=== PATIENT | male | born 1935 | race Caucasian/White ===

== ENCOUNTER 2018-05-29 16:27 | Inpatient (IN) | payer MEDICARE, OTHER ==
[2018-05-29 16:49] LABS: ADD MAN DIFF? NO
[2018-05-29 16:51] LABS: WHITE BLOOD COUNT 11.5 10^3/ul (4.8-10.8)
[2018-05-29 16:51] LABS: ABNORMAL IP MESSAGE 1; BASOPHILS % 0.3 % (0.0-2.0); EOSINOPHILS # 0.7 10^3/ul (0.0-0.5); EOSINOPHILS % 6.2 % (0.0-7.0); HEMATOCRIT 33.3 % (42.0-52.0); HEMOGLOBIN 10.3 g/dl (14.0-18.0); LYMPHOCYTES # 1.3 10^3/ul (0.8-2.9); LYMPHOCYTES % 10.9 % (15.0-51.0); MEAN CORPUSCULAR HEMOGLOBIN 21.8 pg (29.0-33.0); MEAN CORPUSCULAR HGB CONC 30.9 g/dl (32.0-37.0); MEAN CORPUSCULAR VOLUME 70.4 fl (82.0-101.0); MONOCYTES % 8.8 % (0.0-11.0); NEUTROPHIL # 8.4 10^3/ul (1.6-7.5); NEUTROPHILS % 73.2 % (39.0-77.0); PLATELET COUNT 128 10^3/UL (140-415); POSITIVE DIFF @See below; RED BLOOD COUNT 4.73 10^6/ul (4.70-6.10); RED CELL DISTRIBUTION WIDTH 15.4 % (11.5-14.5)
[2018-05-29] MEDS: METHYLPREDNISOLONE 125 MG INJ IV (17:08)
[2018-05-29] MEDS: MAGNESIUM SULFATE 2 GM/50 ML 50 ML IVPB (17:09)
[2018-05-29] MEDS: IPRATROPIUM (NEB) 0.5 MG/2.5 ML AMP INH (17:09)
[2018-05-29] MEDS: ALBUTEROL 0.5% (NEB) 2.5 MG/0.5 ML AMP INH (17:09)
[2018-05-29 17:12] LABS: INR 1.24; PROTIME 15.7 Sec (11.9-14.9); PT RATIO 1.2
[2018-05-29 17:13] LABS: PARTIAL THROMBOPLASTIN TIME 35.6 Sec (23.0-35.0)
[2018-05-29 17:20] LABS: ANION GAP 21 (5-13); BLOOD UREA NITROGEN 53 mg/dl (7-20); CARBON DIOXIDE 15 mmol/L (21-31); CHLORIDE 106 mmol/L (97-110); CREATININE 2.65 mg/dl (0.61-1.24); GLUCOSE 163 mg/dl (70-220); POTASSIUM 4.4 mmol/L (3.5-5.1); SODIUM 142 mmol/L (135-144)
[2018-05-29 17:21] LABS: Allen Test ACCEPTAB; Arterial Base Excess -8.4 mmol/L (-3.0-3); Arterial Blood Gas Oxygen Sat 94.1 mmHG (95.0-100.0); Arterial COHb 0.5 % (0.0-3.0); Arterial Fraction of Oxyhgb 93.3 % (93.0-99.0); Arterial HCO3 16.3 mmol/L (22.0-26.0); Arterial MetHb 0.3 % (0.0-1.5); Arterial pCO2 31.1 mmhg (35-45); MODE NASAL CANNULA; Site Right Radial
[2018-05-29 17:32] LABS: B-TYPE NATRIURETIC PEPTIDE 3290 PG/ML (0-450); TROPONIN-I < 0.012 ng/ml (0.000-0.120)
[2018-05-29] MEDS: SODIUM CHLORIDE 0.9% 1L BAG IV* (17:33)
[2018-05-29] MEDS: LEVOFLOXACIN 750MG/D5W (PMX) 150 ML IVPB (18:05)
[2018-05-29] MEDS ORDERED: ACETAMINOPHEN 325 MG TAB PO ×2 (18:30→19:30)
[2018-05-29] MEDS ORDERED: ONDANSETRON 4 MG INJ IV ×2 (18:30→19:30)
[2018-05-29] MEDS ORDERED: MAGNESIUM HYDROXIDE 30ML CUP PO (19:30)
[2018-05-29] MEDS ORDERED: DOCUSATE SODIUM 100 MG CAP PO (19:30)
[2018-05-29] MEDS ORDERED: NITROGLYCERIN (SL) 0.4 MG TAB SL (19:30)
[2018-05-29] MEDS ORDERED: NACL 0.9% 3 ML SYG IV (19:30)
[2018-05-29] MEDS: FUROSEMIDE 40 MG INJ IV (21:33)
[2018-05-29] MEDS: LEVALBUTEROL (NEB) 1.25 MG/0.5 ML AMP HHN (23:28)
[2018-05-30] MEDS ORDERED: IPRATROPIUM (NEB) 0.5 MG/2.5 ML AMP HHN (00:30)
[2018-05-30] MEDS: METOLAZONE 2.5 MG TAB PO (01:12)
[2018-05-30] MEDS: FUROSEMIDE 40 MG INJ IV ×2 (01:13→17:54)
[2018-05-30] MEDS: LORAZEPAM 2 MG INJ IV (04:46)
[2018-05-30] MEDS: LEVALBUTEROL (NEB) 1.25 MG/0.5 ML AMP HHN ×5 (04:57→20:01)
[2018-05-30] MEDS: IPRATROPIUM (NEB) 0.5 MG/2.5 ML AMP HHN ×5 (04:59→20:01)
[2018-05-30] MEDS: BUMETANIDE 3 MG in DEXTROSE 5% 18 ML IV (05:13)
[2018-05-30 06:06] LABS: ADD MAN DIFF? NO
[2018-05-30 06:12] LABS: ABNORMAL IP MESSAGE 1; BASOPHILS % 0.2 % (0.0-2.0); HEMATOCRIT 31.5 % (42.0-52.0); HEMOGLOBIN 10.1 g/dl (14.0-18.0); LYMPHOCYTES # 0.4 10^3/ul (0.8-2.9); LYMPHOCYTES % 6.1 % (15.0-51.0); MEAN CORPUSCULAR HEMOGLOBIN 22.3 pg (29.0-33.0); MEAN CORPUSCULAR HGB CONC 32.1 g/dl (32.0-37.0); MEAN CORPUSCULAR VOLUME 69.5 fl (82.0-101.0); MONOCYTE # 0.1 10^3/ul (0.3-0.9); NEUTROPHIL # 5.6 10^3/ul (1.6-7.5); NEUTROPHILS % 92.2 % (39.0-77.0); PLATELET COUNT 149 10^3/UL (140-415); POSITIVE DIFF @See below; RED BLOOD COUNT 4.53 10^6/ul (4.70-6.10); RED CELL DISTRIBUTION WIDTH 15.1 % (11.5-14.5)
[2018-05-30 06:12] LABS: WHITE BLOOD COUNT 6.1 10^3/ul (4.8-10.8)
[2018-05-30] MEDS: PANTOPRAZOLE (EC) 40 MG TAB PO (06:22)
[2018-05-30 06:39] LABS: IRON 62 ug/dl (35-150)
[2018-05-30 06:46] LABS: ANION GAP 21 (5-13); BLOOD UREA NITROGEN 62 mg/dl (7-20); CALCIUM 9.2 mg/dl (8.4-10.2); CARBON DIOXIDE 17 mmol/L (21-31); CHLORIDE 103 mmol/L (97-110); CREATINE KINASE 34 IU/L (23-200); CREATININE 3.06 mg/dl (0.61-1.24); GLUCOSE 274 mg/dl (70-220); MAGNESIUM 2.1 mg/dl (1.7-2.5); POTASSIUM 5.1 mmol/L (3.5-5.1); SODIUM 141 mmol/L (135-144)
[2018-05-30 06:48] LABS: % IRON SATURATION 22 % SAT (22-52); TOTAL IRON BINDING CAPACITY 284 ug/dl (241-421)
[2018-05-30 06:58] LABS: CK INDEX 2.9; CK-MB 0.99 ng/ml (0.0-2.4); TROPONIN-I < 0.012 ng/ml (0.000-0.120)
[2018-05-30 07:01] LABS: ADD UMIC YES; UR AMORPHOUS CRYSTAL FEW /HPF (NONE SEEN); UR ASCORBIC ACID NEGATIVE (NEGATIVE); UR BACTERIA FEW /HPF (NONE SEEN); UR BILIRUBIN (Dip) NEGATIVE (NEGATIVE); UR BLOOD (Dip) 3+ mg/dL (NEGATIVE); UR CLARITY CLOUDY (CLEAR); UR COLOR YELLOW (YELLOW); UR GLUCOSE (Dip) NEGATIVE (NEGATIVE); UR HYALINE CAST FEW /HPF (NONE SEEN); UR KETONES (Dip) NEGATIVE (NEGATIVE); UR LEUKOCYTE ESTERASE (Dip) TRACE Leu/ul (NEGATIVE); UR NITRITE (Dip) NEGATIVE (NEGATIVE); UR NONSQUAMOUS EPITHELIAL CELL 2 /HPF (NONE SEEN); UR RBC > 182 /HPF (0-5); UR SPECIFIC GRAVITY (Dip) 1.013 (1.003-1.030); UR SQUAMOUS EPITHELIAL CELL FEW /HPF (FEW); UR TOTAL PROTEIN (Dip) NEGATIVE (NEGATIVE); UR UROBILINOGEN (Dip) 1+ mg/dL (NEGATIVE); UR WBC 15 /HPF (0-5)
[2018-05-30 07:04] LABS: SODIUM,URINE RANDOM 23 mmol/L (30-90)
[2018-05-30 07:04] LABS: CREATININE,URINE RANDOM 152.33 mg/dl (20-370)
[2018-05-30] MEDS ORDERED: ENOXAPARIN 30 MG/0.3 ML SYG SC (09:00)
[2018-05-30 09:06] LABS: AADO2 Arterial 179.5 mmHg (7.0-24.0); Allen Test ACCEPTAB; Arterial Base Excess -7.9 mmol/L (-3.0-3); Arterial Blood Gas Oxygen Sat 93.2 mmHG (95.0-100.0); Arterial COHb 0.6 % (0.0-3.0); Arterial Fraction of Oxyhgb 92.4 % (93.0-99.0); Arterial HCO3 16.3 mmol/L (22.0-26.0); Arterial MetHb 0.3 % (0.0-1.5); Arterial pCO2 28.9 mmhg (35-45); Blood Gas IEPAP 18/5; Blood Gas PS 13; MODE MASK - BIPAP; Site Right Radial
[2018-05-30] MEDS: DOXYCYCLINE 100 MG in SOD CHLORIDE 0.9% 250 ML IVPB (09:22)
[2018-05-30 10:33] LABS: PROSTATE SPECIFIC ANTIGEN 0.3 ng/ml (0.0-4.0)
[2018-05-30] MEDS: CEFEPIME 1GM/50 ML (PMX) 50 ML IVPB (11:33)
[2018-05-30] MEDS: DOCUSATE SODIUM 100 MG CAP PO ×2 (11:33→20:23)
[2018-05-30] MEDS: HEPARIN 5,000 UNIT/1 ML VIAL SC ×2 (11:38→20:27)
[2018-05-30] MEDS ORDERED: HEPARIN 5,000 UNIT/1 ML VIAL SC (14:00)
[2018-05-30 14:02] LABS: CREATINE KINASE 34 IU/L (23-200)
[2018-05-30 14:14] LABS: CK INDEX 3.1; CK-MB 1.07 ng/ml (0.0-2.4); TROPONIN-I < 0.012 ng/ml (0.000-0.120)
[2018-05-30] MEDS ORDERED: LEVOFLOXACIN 500MG/D5W (PMX) 250 ML IVPB (19:30)
[2018-05-31] MEDS: IPRATROPIUM (NEB) 0.5 MG/2.5 ML AMP HHN ×6 (01:57→20:46)
[2018-05-31] MEDS: LEVALBUTEROL (NEB) 1.25 MG/0.5 ML AMP HHN ×6 (01:58→20:46)
[2018-05-31] MEDS: FUROSEMIDE 40 MG INJ IV ×2 (05:02→17:22)
[2018-05-31] MEDS: PANTOPRAZOLE (EC) 40 MG TAB PO (05:02)
[2018-05-31 06:15] LABS: ADD MAN DIFF? NO
[2018-05-31 06:21] LABS: WHITE BLOOD COUNT 10.1 10^3/ul (4.8-10.8)
[2018-05-31 06:21] LABS: ABNORMAL IP MESSAGE 1; BASOPHILS % 0.2 % (0.0-2.0); EOSINOPHILS # 0.2 10^3/ul (0.0-0.5); EOSINOPHILS % 2.4 % (0.0-7.0); HEMATOCRIT 30.3 % (42.0-52.0); HEMOGLOBIN 9.7 g/dl (14.0-18.0); LYMPHOCYTES # 1.1 10^3/ul (0.8-2.9); LYMPHOCYTES % 10.7 % (15.0-51.0); MEAN CORPUSCULAR VOLUME 68.9 fl (82.0-101.0); MONOCYTES % 9.4 % (0.0-11.0); NEUTROPHIL # 7.8 10^3/ul (1.6-7.5); NEUTROPHILS % 76.8 % (39.0-77.0); PLATELET COUNT 115 10^3/UL (140-415); POSITIVE DIFF @See below
[2018-05-31 06:41] LABS: ANION GAP 19 (5-13); BLOOD UREA NITROGEN 71 mg/dl (7-20); CALCIUM 9.1 mg/dl (8.4-10.2); CARBON DIOXIDE 21 mmol/L (21-31); CHLORIDE 103 mmol/L (97-110); CREATININE 2.79 mg/dl (0.61-1.24); GLUCOSE 142 mg/dl (70-220); MAGNESIUM 1.9 mg/dl (1.7-2.5); PHOSPHORUS 5.6 mg/dl (2.5-4.9); POTASSIUM 4.2 mmol/L (3.5-5.1); SODIUM 143 mmol/L (135-144)
[2018-05-31] MEDS: DOCUSATE SODIUM 100 MG CAP PO ×2 (08:34→19:56)
[2018-05-31] MEDS: METOLAZONE 5 MG TAB PO (08:35)
[2018-05-31] MEDS: HEPARIN 5,000 UNIT/1 ML VIAL SC ×2 (08:39→20:02)
[2018-05-31] MEDS: CEFEPIME 1GM/50 ML (PMX) 50 ML IVPB (09:01)
[2018-05-31] MEDS ORDERED: ALBUTEROL/IPRATROPIUM (NEB) 3 ML AMP HHN (10:30)
[2018-05-31] MEDS: SEVELAMER CARBONATE 800 MG TABLET PO ×2 (11:21→17:21)
[2018-05-31] MEDS: POLYETHYLENE GLYCOL 17 GM PACKET PO (11:21)
[2018-05-31] MEDS ORDERED: LEVOFLOXACIN 750MG/D5W (PMX) 150 ML IVPB (18:00)
[2018-06-01] MEDS: IPRATROPIUM (NEB) 0.5 MG/2.5 ML AMP HHN ×6 (00:30→20:50)
[2018-06-01] MEDS: LEVALBUTEROL (NEB) 1.25 MG/0.5 ML AMP HHN ×6 (00:30→20:50)
[2018-06-01] MEDS: FUROSEMIDE 40 MG INJ IV ×2 (04:50→17:17)
[2018-06-01] MEDS: PANTOPRAZOLE (EC) 40 MG TAB PO (04:50)
[2018-06-01 06:07] LABS: ADD MAN DIFF? NO
[2018-06-01 06:22] LABS: WHITE BLOOD COUNT 9.3 10^3/ul (4.8-10.8)
[2018-06-01 06:22] LABS: BASOPHILS % 0.2 % (0.0-2.0); EOSINOPHILS % 10.9 % (0.0-7.0); HEMATOCRIT 33.2 % (42.0-52.0); HEMOGLOBIN 10.8 g/dl (14.0-18.0); LYMPHOCYTES # 1.1 10^3/ul (0.8-2.9); LYMPHOCYTES % 11.8 % (15.0-51.0); MEAN CORPUSCULAR HEMOGLOBIN 22.4 pg (29.0-33.0); MEAN CORPUSCULAR HGB CONC 32.5 g/dl (32.0-37.0); MEAN CORPUSCULAR VOLUME 68.7 fl (82.0-101.0); MONOCYTE # 0.9 10^3/ul (0.3-0.9); MONOCYTES % 9.2 % (0.0-11.0); NEUTROPHIL # 6.3 10^3/ul (1.6-7.5); NEUTROPHILS % 67.5 % (39.0-77.0); PLATELET COUNT 119 10^3/UL (140-415); RED BLOOD COUNT 4.83 10^6/ul (4.70-6.10); RED CELL DISTRIBUTION WIDTH 14.9 % (11.5-14.5)
[2018-06-01 06:39] LABS: MAGNESIUM 1.9 mg/dl (1.7-2.5)
[2018-06-01 06:39] LABS: PHOSPHORUS 5.4 mg/dl (2.5-4.9)
[2018-06-01 06:47] LABS: ANION GAP 18 (5-13); BLOOD UREA NITROGEN 67 mg/dl (7-20); CALCIUM 9.2 mg/dl (8.4-10.2); CARBON DIOXIDE 27 mmol/L (21-31); CHLORIDE 99 mmol/L (97-110); CREATININE 2.24 mg/dl (0.61-1.24); GLUCOSE 135 mg/dl (70-220); POTASSIUM 3.7 mmol/L (3.5-5.1); SODIUM 144 mmol/L (135-144)
[2018-06-01] MEDS: DOCUSATE SODIUM 100 MG CAP PO ×2 (08:33→19:52)
[2018-06-01] MEDS: SEVELAMER CARBONATE 800 MG TABLET PO ×3 (08:33→17:17)
[2018-06-01] MEDS: HEPARIN 5,000 UNIT/1 ML VIAL SC ×2 (08:38→19:59)
[2018-06-01] MEDS: METOLAZONE 2.5 MG TAB PO (09:25)
[2018-06-01] MEDS: CEFEPIME 1GM/50 ML (PMX) 50 ML IVPB (09:26)
[2018-06-01] MEDS: POLYETHYLENE GLYCOL 17 GM PACKET PO (10:46)
[2018-06-02] MEDS: IPRATROPIUM (NEB) 0.5 MG/2.5 ML AMP HHN ×6 (01:40→20:50)
[2018-06-02] MEDS: LEVALBUTEROL (NEB) 1.25 MG/0.5 ML AMP HHN ×6 (01:41→20:50)
[2018-06-02] MEDS: FUROSEMIDE 40 MG INJ IV ×2 (04:55→18:07)
[2018-06-02] MEDS: PANTOPRAZOLE (EC) 40 MG TAB PO (04:56)
[2018-06-02 05:47] LABS: ADD MAN DIFF? NO
[2018-06-02 05:56] LABS: ABNORMAL IP MESSAGE 1; BASOPHILS % 0.2 % (0.0-2.0); EOSINOPHILS # 1.1 10^3/ul (0.0-0.5); HEMOGLOBIN 10.8 g/dl (14.0-18.0); LYMPHOCYTES # 0.9 10^3/ul (0.8-2.9); LYMPHOCYTES % 9.9 % (15.0-51.0); MEAN CORPUSCULAR HEMOGLOBIN 21.7 pg (29.0-33.0); MEAN CORPUSCULAR HGB CONC 31.8 g/dl (32.0-37.0); MEAN CORPUSCULAR VOLUME 68.4 fl (82.0-101.0); MONOCYTE # 0.9 10^3/ul (0.3-0.9); MONOCYTES % 10.7 % (0.0-11.0); NEUTROPHIL # 5.9 10^3/ul (1.6-7.5); NEUTROPHILS % 66.9 % (39.0-77.0); PLATELET COUNT 87 10^3/UL (140-415); POSITIVE DIFF @See below; RED BLOOD COUNT 4.97 10^6/ul (4.70-6.10)
[2018-06-02 05:56] LABS: WHITE BLOOD COUNT 8.8 10^3/ul (4.8-10.8)
[2018-06-02 06:10] LABS: MAGNESIUM 1.8 mg/dl (1.7-2.5)
[2018-06-02 06:10] LABS: PHOSPHORUS 4.6 mg/dl (2.5-4.9)
[2018-06-02 06:14] LABS: ANION GAP 14 (5-13); BLOOD UREA NITROGEN 62 mg/dl (7-20); CALCIUM 9.1 mg/dl (8.4-10.2); CARBON DIOXIDE 32 mmol/L (21-31); CHLORIDE 97 mmol/L (97-110); CREATININE 1.83 mg/dl (0.61-1.24); GLUCOSE 151 mg/dl (70-220); POTASSIUM 3.4 mmol/L (3.5-5.1); SODIUM 143 mmol/L (135-144)
[2018-06-02] MEDS: SEVELAMER CARBONATE 800 MG TABLET PO ×3 (07:59→18:07)
[2018-06-02] MEDS: DOCUSATE SODIUM 100 MG CAP PO ×2 (08:23→22:55)
[2018-06-02] MEDS: POLYETHYLENE GLYCOL 17 GM PACKET PO (08:23)
[2018-06-02] MEDS: HEPARIN 5,000 UNIT/1 ML VIAL SC ×2 (08:32→23:07)
[2018-06-02] MEDS: POTASSIUM CHLORIDE (SR) 20 MEQ TAB PO (08:33)
[2018-06-02] MEDS: CEFEPIME 1GM/50 ML (PMX) 50 ML IVPB (10:47)
[2018-06-02] MEDS: NIFEdipine (XL) 60 MG TAB PO (11:52)
[2018-06-02] MEDS: ATORVASTATIN 20 MG TAB PO (22:56)
[2018-06-03] MEDS: IPRATROPIUM (NEB) 0.5 MG/2.5 ML AMP HHN ×5 (00:06→17:00)
[2018-06-03] MEDS: LEVALBUTEROL (NEB) 1.25 MG/0.5 ML AMP HHN ×5 (00:06→17:00)
[2018-06-03] MEDS: FUROSEMIDE 40 MG INJ IV (06:09)
[2018-06-03] MEDS: PANTOPRAZOLE (EC) 40 MG TAB PO (06:12)
[2018-06-03 06:27] LABS: ANION GAP 16 (5-13); BLOOD UREA NITROGEN 63 mg/dl (7-20); CARBON DIOXIDE 33 mmol/L (21-31); CHLORIDE 96 mmol/L (97-110); CREATININE 2.08 mg/dl (0.61-1.24); GLUCOSE 189 mg/dl (70-220); MAGNESIUM 1.9 mg/dl (1.7-2.5); PHOSPHORUS 4.7 mg/dl (2.5-4.9); POTASSIUM 3.7 mmol/L (3.5-5.1); SODIUM 145 mmol/L (135-144)
[2018-06-03] MEDS: SEVELAMER CARBONATE 800 MG TABLET PO ×3 (07:47→17:36)
[2018-06-03] MEDS: DOCUSATE SODIUM 100 MG CAP PO (08:26)
[2018-06-03] MEDS: POLYETHYLENE GLYCOL 17 GM PACKET PO (08:26)
[2018-06-03] MEDS: NIFEdipine (XL) 60 MG TAB PO (08:29)
[2018-06-03] MEDS: HEPARIN 5,000 UNIT/1 ML VIAL SC (08:31)
[2018-06-03] MEDS: CEFEPIME 1GM/50 ML (PMX) 50 ML IVPB (10:06)
[2018-06-03] MEDS: BUMETANIDE 1 MG TAB PO (17:36)
== END 2018-06-03 17:46 | disposition home or self-care (01) | DRG 871 ==
LOC: E/R 16:27 → 6WM 20:41
DX: A41.9 Sepsis, unspecified organism (principal); J18.9 Pneumonia, unspecified organism; I50.43 Acute on chronic combined systolic (congestive) and diastolic (congestive) heart failure; J96.01 Acute respiratory failure with hypoxia; J44.1 Chronic obstructive pulmonary disease with (acute) exacerbation; E87.2 Acidosis; N17.9 Acute kidney failure, unspecified; I13.0 Hypertensive heart and chronic kidney disease with heart failure and stage 1 through stage 4 chronic kidney disease, or unspecified chronic kidney disease; J44.0 Chronic obstructive pulmonary disease with (acute) lower respiratory infection; J90 Pleural effusion, not elsewhere classified; I31.3 Pericardial effusion (noninflammatory); N39.0 Urinary tract infection, site not specified; N18.9 Chronic kidney disease, unspecified; Z95.810 Presence of automatic (implantable) cardiac defibrillator; D50.9 Iron deficiency anemia, unspecified; D69.6 Thrombocytopenia, unspecified; E03.9 Hypothyroidism, unspecified; E83.9 Disorder of mineral metabolism, unspecified; I73.9 Peripheral vascular disease, unspecified; R91.1 Solitary pulmonary nodule; I48.2 Chronic atrial fibrillation; R60.1 Generalized edema; E83.39 Other disorders of phosphorus metabolism; I27.20 Pulmonary hypertension, unspecified; K80.20 Calculus of gallbladder without cholecystitis without obstruction; E87.6 Hypokalemia; N40.0 Benign prostatic hyperplasia without lower urinary tract symptoms
CPT/HCPCS: 36415; 36600; 71045; 71250; 74176; 76604; 76775; 80048; 81001; 81003; 82550; 82553; 82570; 82728; 82803; 83540; 83605; 83735; 83880; 84100; 84153; 84154; 84300; 84484; 85025; 85610; 85730; 87040; 87086; 87400; 93005; 93306; 94640; 94644; 94660; 94664; 96374; 96375; 97110; 97116; 97162; 97167; 97530; 97535; 99291-25

== ENCOUNTER 2018-07-03 15:37 | Inpatient (IN) | payer MEDICARE, OTHER ==
[2018-07-03 16:10] LABS: ADD MAN DIFF? NO
[2018-07-03 16:16] LABS: WHITE BLOOD COUNT 7.9 10^3/ul (4.8-10.8)
[2018-07-03 16:16] LABS: ABNORMAL IP MESSAGE 1; BASOPHILS % 0.4 % (0.0-2.0); EOSINOPHILS # 0.3 10^3/ul (0.0-0.5); EOSINOPHILS % 3.9 % (0.0-7.0); HEMATOCRIT 29.6 % (42.0-52.0); HEMOGLOBIN 9.2 g/dl (14.0-18.0); LYMPHOCYTES % 13.1 % (15.0-51.0); MEAN CORPUSCULAR HEMOGLOBIN 21.7 pg (29.0-33.0); MEAN CORPUSCULAR HGB CONC 31.1 g/dl (32.0-37.0); MONOCYTE # 0.8 10^3/ul (0.3-0.9); MONOCYTES % 10.4 % (0.0-11.0); NEUTROPHIL # 5.7 10^3/ul (1.6-7.5); NEUTROPHILS % 71.6 % (39.0-77.0); PLATELET COUNT 201 10^3/UL (140-415); POSITIVE DIFF @See below; RED BLOOD COUNT 4.23 10^6/ul (4.70-6.10)
[2018-07-03 16:29] LABS: AADO2 Arterial 140.5 mmHg (7.0-24.0); Arterial Base Excess -6.8 mmol/L (-3.0-3); Arterial Blood Gas Oxygen Sat 94.4 mmHG (95.0-100.0); Arterial COHb 0.2 % (0.0-3.0); Arterial Fraction of Oxyhgb 93.9 % (93.0-99.0); Arterial HCO3 16.8 mmol/L (22.0-26.0); Arterial MetHb 0.3 % (0.0-1.5); Arterial pCO2 27.6 mmhg (35-45); Blood Gas IEPAP 15/5; Blood Gas PS 10; MODE MASK - BIPAP; Site Right Brachial
[2018-07-03 16:32] LABS: PROTIME 15.3 Sec (11.9-14.9); PT RATIO 1.2
[2018-07-03 16:33] LABS: PARTIAL THROMBOPLASTIN TIME 38.5 Sec (23.0-35.0)
[2018-07-03 16:34] LABS: ALANINE AMINOTRANSFERASE 13 IU/L (13-69); ALBUMIN 4.6 g/dl (3.3-4.9); ALBUMIN/GLOBULIN RATIO 1.58; ALKALINE PHOSPHATASE 109 IU/L (42-121); AMYLASE 105 U/L (11-123); ANION GAP 18 (5-13); ASPARTATE AMINO TRANSFERASE 23 IU/L (15-46); BILIRUBIN,INDIRECT 0.5 mg/dl (0-1.1); BILIRUBIN,TOTAL 0.5 mg/dl (0.2-1.3); BLOOD UREA NITROGEN 27 mg/dl (7-20); CALCIUM 9.1 mg/dl (8.4-10.2); CARBON DIOXIDE 14 mmol/L (21-31); CHLORIDE 108 mmol/L (97-110); CREATININE 1.81 mg/dl (0.61-1.24); GLUCOSE 171 mg/dl (70-220); LIPASE 84 U/L (23-300); POTASSIUM 4.3 mmol/L (3.5-5.1); SODIUM 140 mmol/L (135-144); TOTAL PROTEIN 7.5 g/dl (6.1-8.1)
[2018-07-03 16:35] LABS: ADD UMIC YES; UR ASCORBIC ACID NEGATIVE (NEGATIVE); UR BACTERIA FEW /HPF (NONE SEEN); UR BILIRUBIN (Dip) NEGATIVE (NEGATIVE); UR BLOOD (Dip) 1+ mg/dL (NEGATIVE); UR CLARITY CLOUDY (CLEAR); UR COLOR YELLOW (YELLOW); UR GLUCOSE (Dip) NEGATIVE (NEGATIVE); UR HYALINE CAST FEW /HPF (NONE SEEN); UR KETONES (Dip) NEGATIVE (NEGATIVE); UR LEUKOCYTE ESTERASE (Dip) NEGATIVE Leu/ul (NEGATIVE); UR NITRITE (Dip) NEGATIVE (NEGATIVE); UR RBC 5 /HPF (0-5); UR SPECIFIC GRAVITY (Dip) 1.009 (1.003-1.030); UR SQUAMOUS EPITHELIAL CELL FEW /HPF (FEW); UR TOTAL PROTEIN (Dip) NEGATIVE (NEGATIVE); UR UROBILINOGEN (Dip) NEGATIVE (NEGATIVE); UR WBC 5 /HPF (0-5)
[2018-07-03 16:45] LABS: TROPONIN-I < 0.012 ng/ml (0.000-0.120)
[2018-07-03 17:06] LABS: LACTIC ACID 5.6 mmol/L (0.5-2.0)
[2018-07-03] MEDS: SOD CHLORIDE 0.9% 1,000 ML IV (17:15)
[2018-07-03] MEDS: CEFEPIME 2GM/50 ML (PMX) 50 ML IVPB (17:15)
[2018-07-03] MEDS: VANCOMYCIN 1 GM (PMX) 250 ML IVPB (18:03)
[2018-07-03 18:19] LABS: LACTIC ACID 1.3 mmol/L (0.5-2.0)
[2018-07-03 18:57] LABS: B-TYPE NATRIURETIC PEPTIDE 3250 PG/ML (0-450)
[2018-07-03] MEDS ORDERED: ONDANSETRON 4 MG INJ IV ×2 (19:30→21:30)
[2018-07-03] MEDS ORDERED: ACETAMINOPHEN 325 MG TAB PO (19:30)
[2018-07-03 20:27] LABS: LACTIC ACID 2.3 mmol/L (0.5-2.0)
[2018-07-03] MEDS ORDERED: NACL 0.9% 3 ML SYG IV (21:30)
[2018-07-03] MEDS: BUMETANIDE 1 MG TAB PO (21:54)
[2018-07-03] MEDS: ALBUTEROL/IPRATROPIUM (NEB) 3 ML AMP HHN (22:19)
[2018-07-03] MEDS: FUROSEMIDE 40 MG INJ IV (22:25)
[2018-07-03 22:56] LABS: AADO2 Arterial 331.8 mmHg (7.0-24.0); Allen Test ACCEPTAB; Arterial Base Excess -6.2 mmol/L (-3.0-3); Arterial Blood Gas Oxygen Sat 92.9 mmHG (95.0-100.0); Arterial COHb 0 % (0.0-3.0); Arterial Fraction of Oxyhgb 92.6 % (93.0-99.0); Arterial HCO3 17.7 mmol/L (22.0-26.0); Arterial MetHb 0.3 % (0.0-1.5); Arterial pCO2 29.5 mmhg (35-45); MODE SIMPLE MASK; Site Left Radial
[2018-07-04] MEDS: BUMETANIDE 1 MG TAB PO (05:29)
[2018-07-04 06:22] LABS: ADD MAN DIFF? NO
[2018-07-04 06:28] LABS: WHITE BLOOD COUNT 4.9 10^3/ul (4.8-10.8)
[2018-07-04 06:28] LABS: ABNORMAL IP MESSAGE 1; BASOPHILS % 0.2 % (0.0-2.0); EOSINOPHILS # 0.1 10^3/ul (0.0-0.5); EOSINOPHILS % 1.4 % (0.0-7.0); HEMATOCRIT 24.6 % (42.0-52.0); HEMOGLOBIN 7.8 g/dl (14.0-18.0); LYMPHOCYTES # 0.6 10^3/ul (0.8-2.9); LYMPHOCYTES % 12.3 % (15.0-51.0); MEAN CORPUSCULAR HEMOGLOBIN 21.7 pg (29.0-33.0); MEAN CORPUSCULAR HGB CONC 31.7 g/dl (32.0-37.0); MEAN CORPUSCULAR VOLUME 68.5 fl (82.0-101.0); MONOCYTE # 0.5 10^3/ul (0.3-0.9); MONOCYTES % 10.7 % (0.0-11.0); NEUTROPHIL # 3.7 10^3/ul (1.6-7.5); NEUTROPHILS % 75.2 % (39.0-77.0); PLATELET COUNT 114 10^3/UL (140-415); POSITIVE DIFF @See below; RED BLOOD COUNT 3.59 10^6/ul (4.70-6.10); RED CELL DISTRIBUTION WIDTH 16.2 % (11.5-14.5)
[2018-07-04 07:25] LABS: ALANINE AMINOTRANSFERASE 18 IU/L (13-69); ALBUMIN 3.9 g/dl (3.3-4.9); ALBUMIN/GLOBULIN RATIO 1.56; ALKALINE PHOSPHATASE 88 IU/L (42-121); ANION GAP 14 (5-13); ASPARTATE AMINO TRANSFERASE 13 IU/L (15-46); BILIRUBIN,INDIRECT 0.7 mg/dl (0-1.1); BILIRUBIN,TOTAL 0.7 mg/dl (0.2-1.3); BLOOD UREA NITROGEN 27 mg/dl (7-20); CALCIUM 8.7 mg/dl (8.4-10.2); CARBON DIOXIDE 20 mmol/L (21-31); CHLORIDE 107 mmol/L (97-110); CREATININE 1.68 mg/dl (0.61-1.24); GLUCOSE 116 mg/dl (70-220); MAGNESIUM 1.5 mg/dl (1.7-2.5); POTASSIUM 3.9 mmol/L (3.5-5.1); SODIUM 141 mmol/L (135-144); TOTAL PROTEIN 6.4 g/dl (6.1-8.1)
[2018-07-04] MEDS: DOCUSATE SODIUM 100 MG CAP PO ×2 (08:56→20:12)
[2018-07-04] MEDS: CLOPIDOGREL 75 MG TAB PO (08:56)
[2018-07-04] MEDS: POLYETHYLENE GLYCOL 17 GM PACKET PO (08:56)
[2018-07-04] MEDS: FEBUXOSTAT 40 MG TABLET PO (08:57)
[2018-07-04] MEDS: APIXABAN 5 MG TABLET PO ×2 (08:57→20:13)
[2018-07-04] MEDS: TAMSULOSIN (SR) 0.4 MG CAP PO (08:57)
[2018-07-04] MEDS: NIFEdipine (XL) 60 MG TAB PO (08:57)
[2018-07-04] MEDS: FAMOTIDINE 20 MG TAB PO (08:57)
[2018-07-04 11:40] LABS: CREATINE KINASE 38 IU/L (23-200)
[2018-07-04 11:49] LABS: TOTAL IRON BINDING CAPACITY 271 ug/dl (241-421)
[2018-07-04 11:51] LABS: CK INDEX 2.6; TROPONIN-I < 0.012 ng/ml (0.000-0.120)
[2018-07-04] MEDS: MAGNESIUM SULFATE 2 GM/50 ML 50 ML IVPB (12:24)
[2018-07-04 12:36] LABS: % IRON SATURATION 21 % SAT (22-52); IRON 58 ug/dl (35-150)
[2018-07-04] MEDS: METOLAZONE 2.5 MG TAB PO (14:31)
[2018-07-04 15:12] LABS: CREATINE KINASE 39 IU/L (23-200)
[2018-07-04 15:13] LABS: ANION GAP 13 (5-13); BLOOD UREA NITROGEN 28 mg/dl (7-20); CALCIUM 8.8 mg/dl (8.4-10.2); CARBON DIOXIDE 20 mmol/L (21-31); CHLORIDE 106 mmol/L (97-110); CREATININE 1.57 mg/dl (0.61-1.24); GLUCOSE 157 mg/dl (70-220); POTASSIUM 3.9 mmol/L (3.5-5.1); SODIUM 139 mmol/L (135-144)
[2018-07-04 15:25] LABS: CK INDEX 3.1; CK-MB 1.19 ng/ml (0.0-2.4); TROPONIN-I < 0.012 ng/ml (0.000-0.120)
[2018-07-04] MEDS: BUMETANIDE 1 MG INJ IV (17:22)
[2018-07-04] MEDS: ALBUTEROL/IPRATROPIUM (NEB) 3 ML AMP HHN (19:33)
[2018-07-04] MEDS: ACETAMINOPHEN 325 MG TAB PO (20:12)
[2018-07-04] MEDS: ATORVASTATIN 20 MG TAB PO (20:12)
[2018-07-04 20:23] LABS: PROSTATE SPECIFIC ANTIGEN 0.4 ng/ml (0.0-4.0)
[2018-07-05 01:51] LABS: ADD UMIC YES; UR ASCORBIC ACID NEGATIVE (NEGATIVE); UR BACTERIA FEW /HPF (NONE SEEN); UR BILIRUBIN (Dip) NEGATIVE (NEGATIVE); UR BLOOD (Dip) 1+ mg/dL (NEGATIVE); UR CLARITY CLEAR (CLEAR); UR COLOR STRAW (YELLOW); UR GLUCOSE (Dip) NEGATIVE (NEGATIVE); UR KETONES (Dip) NEGATIVE (NEGATIVE); UR LEUKOCYTE ESTERASE (Dip) NEGATIVE Leu/ul (NEGATIVE); UR NITRITE (Dip) NEGATIVE (NEGATIVE); UR RBC 6 /HPF (0-5); UR SPECIFIC GRAVITY (Dip) 1.005 (1.003-1.030); UR TOTAL PROTEIN (Dip) NEGATIVE (NEGATIVE); UR UROBILINOGEN (Dip) NEGATIVE (NEGATIVE); UR WBC 1 /HPF (0-5)
[2018-07-05 01:55] LABS: SODIUM,URINE RANDOM 81 mmol/L (30-90)
[2018-07-05] MEDS: BUMETANIDE 1 MG INJ IV ×2 (05:47→17:04)
[2018-07-05 05:52] LABS: ADD MAN DIFF? NO
[2018-07-05 05:56] LABS: WHITE BLOOD COUNT 4.6 10^3/ul (4.8-10.8)
[2018-07-05 05:56] LABS: ABNORMAL IP MESSAGE 1; BASOPHILS % 0.4 % (0.0-2.0); EOSINOPHILS # 0.5 10^3/ul (0.0-0.5); EOSINOPHILS % 10.5 % (0.0-7.0); HEMATOCRIT 24.4 % (42.0-52.0); HEMOGLOBIN 7.7 g/dl (14.0-18.0); LYMPHOCYTES # 0.7 10^3/ul (0.8-2.9); MEAN CORPUSCULAR HEMOGLOBIN 22.1 pg (29.0-33.0); MEAN CORPUSCULAR HGB CONC 31.6 g/dl (32.0-37.0); MEAN CORPUSCULAR VOLUME 69.9 fl (82.0-101.0); MONOCYTE # 0.5 10^3/ul (0.3-0.9); MONOCYTES % 11.9 % (0.0-11.0); NEUTROPHIL # 2.8 10^3/ul (1.6-7.5); NEUTROPHILS % 60.8 % (39.0-77.0); PLATELET COUNT 129 10^3/UL (140-415); POSITIVE DIFF @See below; RED BLOOD COUNT 3.49 10^6/ul (4.70-6.10); RED CELL DISTRIBUTION WIDTH 15.9 % (11.5-14.5)
[2018-07-05 06:39] LABS: ANION GAP 13 (5-13); BLOOD UREA NITROGEN 25 mg/dl (7-20); CALCIUM 8.7 mg/dl (8.4-10.2); CARBON DIOXIDE 23 mmol/L (21-31); CHLORIDE 105 mmol/L (97-110); CHOL/HDL RATIO 4.7 RATIO; CHOLESTEROL 141 mg/dl (100-200); CREATININE 1.55 mg/dl (0.61-1.24); GLUCOSE 118 mg/dl (70-220); HDL CHOLESTEROL 30 mg/dl (31-75); LDL CHOLESTEROL,CALCULATED 96 mg/dl; MAGNESIUM 1.8 mg/dl (1.7-2.5); PHOSPHORUS 4.2 mg/dl (2.5-4.9); POTASSIUM 3.5 mmol/L (3.5-5.1); SODIUM 141 mmol/L (135-144); TRIGLYCERIDES 75 mg/dl (0-149)
[2018-07-05] MEDS: CLOPIDOGREL 75 MG TAB PO (09:34)
[2018-07-05] MEDS: FEBUXOSTAT 40 MG TABLET PO (09:34)
[2018-07-05] MEDS: NIFEdipine (XL) 60 MG TAB PO (09:35)
[2018-07-05] MEDS: DOCUSATE SODIUM 100 MG CAP PO ×2 (09:35→21:39)
[2018-07-05] MEDS: APIXABAN 5 MG TABLET PO ×2 (09:35→21:39)
[2018-07-05] MEDS: POLYETHYLENE GLYCOL 17 GM PACKET PO (09:35)
[2018-07-05] MEDS: FAMOTIDINE 20 MG TAB PO (09:35)
[2018-07-05] MEDS: METOLAZONE 5 MG TAB PO (09:35)
[2018-07-05] MEDS: TAMSULOSIN (SR) 0.4 MG CAP PO (09:35)
[2018-07-05] MEDS: ALBUTEROL 0.083% (NEB) 2.5 MG/3 ML AMP HHN ×5 (09:59→21:11)
[2018-07-05] MEDS: IPRATROPIUM (NEB) 0.5 MG/2.5 ML AMP INH (10:01)
[2018-07-05] MEDS: ALBUTEROL 0.5% (NEB) 2.5 MG/0.5 ML AMP INH (10:01)
[2018-07-05] MEDS: SOD FERRIC GLUC COMPLX 125 MG in SOD CHLORIDE 0.9% 100 ML IVPB (14:15)
[2018-07-05] MEDS: ALBUTEROL/IPRATROPIUM (NEB) 3 ML AMP HHN (18:30)
[2018-07-05] MEDS: ATORVASTATIN 20 MG TAB PO (21:39)
[2018-07-06 05:39] LABS: ADD MAN DIFF? NO
[2018-07-06 05:43] LABS: ABNORMAL IP MESSAGE 1; BASOPHILS % 0.4 % (0.0-2.0); EOSINOPHILS # 0.3 10^3/ul (0.0-0.5); EOSINOPHILS % 5.6 % (0.0-7.0); HEMATOCRIT 24.9 % (42.0-52.0); HEMOGLOBIN 7.8 g/dl (14.0-18.0); LYMPHOCYTES # 0.6 10^3/ul (0.8-2.9); LYMPHOCYTES % 11.2 % (15.0-51.0); MEAN CORPUSCULAR HEMOGLOBIN 21.4 pg (29.0-33.0); MEAN CORPUSCULAR HGB CONC 31.3 g/dl (32.0-37.0); MEAN CORPUSCULAR VOLUME 68.4 fl (82.0-101.0); MONOCYTE # 0.8 10^3/ul (0.3-0.9); MONOCYTES % 14.2 % (0.0-11.0); NEUTROPHIL # 3.9 10^3/ul (1.6-7.5); NEUTROPHILS % 68.4 % (39.0-77.0); PLATELET COUNT 124 10^3/UL (140-415); POSITIVE DIFF @See below; RED BLOOD COUNT 3.64 10^6/ul (4.70-6.10); RED CELL DISTRIBUTION WIDTH 15.8 % (11.5-14.5)
[2018-07-06 05:43] LABS: WHITE BLOOD COUNT 5.7 10^3/ul (4.8-10.8)
[2018-07-06] MEDS: BUMETANIDE 1 MG INJ IV ×2 (06:13→17:32)
[2018-07-06 06:33] LABS: ANION GAP 10 (5-13); BLOOD UREA NITROGEN 29 mg/dl (7-20); CALCIUM 8.7 mg/dl (8.4-10.2); CARBON DIOXIDE 28 mmol/L (21-31); CHLORIDE 103 mmol/L (97-110); CREATININE 1.47 mg/dl (0.61-1.24); GLUCOSE 129 mg/dl (70-220); POTASSIUM 3.3 mmol/L (3.5-5.1); SODIUM 141 mmol/L (135-144)
[2018-07-06] MEDS: ALBUTEROL 0.083% (NEB) 2.5 MG/3 ML AMP HHN ×3 (08:20→20:02)
[2018-07-06] MEDS: FAMOTIDINE 20 MG TAB PO (09:33)
[2018-07-06] MEDS: DOCUSATE SODIUM 100 MG CAP PO ×2 (09:33→20:55)
[2018-07-06] MEDS: FEBUXOSTAT 40 MG TABLET PO (09:33)
[2018-07-06] MEDS: APIXABAN 5 MG TABLET PO ×2 (09:34→20:55)
[2018-07-06] MEDS: METOLAZONE 5 MG TAB PO (09:35)
[2018-07-06] MEDS: CLOPIDOGREL 75 MG TAB PO (09:35)
[2018-07-06] MEDS: TAMSULOSIN (SR) 0.4 MG CAP PO (09:35)
[2018-07-06] MEDS: NIFEdipine (XL) 60 MG TAB PO (09:35)
[2018-07-06] MEDS: POLYETHYLENE GLYCOL 17 GM PACKET PO (09:36)
[2018-07-06] MEDS: BUDESONIDE (NEB) 0.25 MG/2 ML AMP HHN ×2 (10:30→20:02)
[2018-07-06] MEDS: ALBUTEROL/IPRATROPIUM (NEB) 3 ML AMP HHN (10:34)
[2018-07-06 12:47] LABS: PHOSPHORUS 4.2 mg/dl (2.5-4.9)
[2018-07-06 12:47] LABS: MAGNESIUM 1.7 mg/dl (1.7-2.5)
[2018-07-06] MEDS: SOD FERRIC GLUC COMPLX 125 MG in SOD CHLORIDE 0.9% 100 ML IVPB (13:30)
[2018-07-06 14:56] LABS: CREATININE, RANDOM URINE 25 mg/dL (20-320); MICROALBUMIN 0.9 mg/dL; MICROALBUMIN/CREATININE RATIO 36 (<30)
[2018-07-06] MEDS: METHYLPREDNISOLONE 125 MG INJ IV (15:09)
[2018-07-06] MEDS: GUAIFENESIN 20 MG/ML 5ML CUP PO (15:09)
[2018-07-06] MEDS: POTASSIUM CHLORIDE 50 ML IVPB ×3 (15:10→17:35)
[2018-07-06] MEDS: ATORVASTATIN 20 MG TAB PO (20:55)
[2018-07-07 05:28] LABS: ADD MAN DIFF? NO
[2018-07-07 05:31] LABS: ABNORMAL IP MESSAGE 1; BASOPHILS % 0.2 % (0.0-2.0); LYMPHOCYTES # 0.3 10^3/ul (0.8-2.9); LYMPHOCYTES % 7.3 % (15.0-51.0); MEAN CORPUSCULAR HEMOGLOBIN 21.8 pg (29.0-33.0); MEAN CORPUSCULAR VOLUME 68.1 fl (82.0-101.0); MONOCYTE # 0.2 10^3/ul (0.3-0.9); MONOCYTES % 4.5 % (0.0-11.0); NEUTROPHIL # 3.8 10^3/ul (1.6-7.5); NEUTROPHILS % 87.3 % (39.0-77.0); PLATELET COUNT 98 10^3/UL (140-415); POSITIVE DIFF @See below; RED BLOOD COUNT 3.67 10^6/ul (4.70-6.10); RED CELL DISTRIBUTION WIDTH 15.6 % (11.5-14.5)
[2018-07-07 05:31] LABS: WHITE BLOOD COUNT 4.4 10^3/ul (4.8-10.8)
[2018-07-07] MEDS: BUMETANIDE 1 MG INJ IV ×2 (05:32→17:32)
[2018-07-07 05:45] LABS: ANION GAP 11 (5-13); BLOOD UREA NITROGEN 35 mg/dl (7-20); CALCIUM 8.9 mg/dl (8.4-10.2); CARBON DIOXIDE 29 mmol/L (21-31); CHLORIDE 99 mmol/L (97-110); CREATININE 1.46 mg/dl (0.61-1.24); GLUCOSE 270 mg/dl (70-220); POTASSIUM 3.1 mmol/L (3.5-5.1); SODIUM 139 mmol/L (135-144)
[2018-07-07 07:28] LABS: MAGNESIUM 1.8 mg/dl (1.7-2.5)
[2018-07-07 07:48] LABS: PHOSPHORUS 4.1 mg/dl (2.5-4.9)
[2018-07-07] MEDS: POLYETHYLENE GLYCOL 17 GM PACKET PO (08:41)
[2018-07-07] MEDS: NIFEdipine (XL) 60 MG TAB PO (08:43)
[2018-07-07] MEDS: FAMOTIDINE 20 MG TAB PO (08:43)
[2018-07-07] MEDS: FEBUXOSTAT 40 MG TABLET PO (08:43)
[2018-07-07] MEDS: DOCUSATE SODIUM 100 MG CAP PO ×2 (08:43→20:56)
[2018-07-07] MEDS: APIXABAN 5 MG TABLET PO ×2 (08:43→20:56)
[2018-07-07] MEDS: METOLAZONE 5 MG TAB PO (08:43)
[2018-07-07] MEDS: CLOPIDOGREL 75 MG TAB PO (08:43)
[2018-07-07] MEDS: TAMSULOSIN (SR) 0.4 MG CAP PO (08:43)
[2018-07-07] MEDS: POTASSIUM CHLORIDE (SR) 20 MEQ TAB PO (08:48)
[2018-07-07] MEDS: SPIRONOLACTONE 25 MG TAB PO (08:48)
[2018-07-07] MEDS: ALBUTEROL 0.083% (NEB) 2.5 MG/3 ML AMP HHN ×3 (08:55→20:31)
[2018-07-07] MEDS: BUDESONIDE (NEB) 0.25 MG/2 ML AMP HHN ×2 (08:57→20:31)
[2018-07-07] MEDS: SOD FERRIC GLUC COMPLX 125 MG in SOD CHLORIDE 0.9% 100 ML IVPB (12:58)
[2018-07-07 18:13] LABS: OCCULT BLOOD STOOL NEGATIVE (NEGATIVE)
[2018-07-07] MEDS: ATORVASTATIN 20 MG TAB PO (20:56)
[2018-07-08] MEDS: BUMETANIDE 1 MG INJ IV (05:26)
[2018-07-08 05:51] LABS: ADD MAN DIFF? NO
[2018-07-08 05:57] LABS: WHITE BLOOD COUNT 6.6 10^3/ul (4.8-10.8)
[2018-07-08 05:57] LABS: ABNORMAL IP MESSAGE 1; BASOPHILS % 0.2 % (0.0-2.0); EOSINOPHILS % 0.6 % (0.0-7.0); HEMATOCRIT 25.3 % (42.0-52.0); LYMPHOCYTES # 0.9 10^3/ul (0.8-2.9); LYMPHOCYTES % 13.7 % (15.0-51.0); MEAN CORPUSCULAR HEMOGLOBIN 21.6 pg (29.0-33.0); MEAN CORPUSCULAR HGB CONC 31.6 g/dl (32.0-37.0); MEAN CORPUSCULAR VOLUME 68.4 fl (82.0-101.0); MONOCYTE # 0.6 10^3/ul (0.3-0.9); MONOCYTES % 8.9 % (0.0-11.0); NEUTROPHILS % 76.1 % (39.0-77.0); PLATELET COUNT 103 10^3/UL (140-415); POSITIVE DIFF @See below; RED CELL DISTRIBUTION WIDTH 15.1 % (11.5-14.5)
[2018-07-08 07:10] LABS: ANION GAP 10 (5-13); BLOOD UREA NITROGEN 47 mg/dl (7-20); CALCIUM 8.9 mg/dl (8.4-10.2); CARBON DIOXIDE 34 mmol/L (21-31); CHLORIDE 98 mmol/L (97-110); CREATININE 1.51 mg/dl (0.61-1.24); GLUCOSE 149 mg/dl (70-220); MAGNESIUM 1.8 mg/dl (1.7-2.5); PHOSPHORUS 3.6 mg/dl (2.5-4.9); POTASSIUM 3.6 mmol/L (3.5-5.1); SODIUM 142 mmol/L (135-144)
[2018-07-08] MEDS: DOCUSATE SODIUM 100 MG CAP PO (08:43)
[2018-07-08] MEDS: POLYETHYLENE GLYCOL 17 GM PACKET PO (08:50)
[2018-07-08] MEDS: TAMSULOSIN (SR) 0.4 MG CAP PO (08:51)
[2018-07-08] MEDS: NIFEdipine (XL) 90 MG TAB PO (08:51)
[2018-07-08] MEDS: FAMOTIDINE 20 MG TAB PO (08:51)
[2018-07-08] MEDS: APIXABAN 5 MG TABLET PO (08:51)
[2018-07-08] MEDS: FEBUXOSTAT 40 MG TABLET PO (08:51)
[2018-07-08] MEDS: CLOPIDOGREL 75 MG TAB PO (08:51)
[2018-07-08] MEDS: ALBUTEROL 0.083% (NEB) 2.5 MG/3 ML AMP HHN ×2 (08:55→14:00)
[2018-07-08] MEDS ORDERED: METOLAZONE 5 MG TAB PO (09:00)
[2018-07-08] MEDS: BUDESONIDE (NEB) 0.25 MG/2 ML AMP HHN (10:36)
[2018-07-08] MEDS: SOD FERRIC GLUC COMPLX 125 MG in SOD CHLORIDE 0.9% 100 ML IVPB (12:19)
[2018-07-08] MEDS ORDERED: BUMETANIDE 1 MG TAB PO (18:00)
== END 2018-07-08 15:45 | disposition home or self-care (01) | DRG 291 ==
LOC: 6WM 20:07 → E/R 15:37 → 6WM 19:02
PROC: 5A09357 Assistance with Respiratory Ventilation, Less than 24 Consecutive Hours, Continuous Positive Airway Pressure (ICD-10-PCS; principal; 2018-07-03)
DX: I13.0 Hypertensive heart and chronic kidney disease with heart failure and stage 1 through stage 4 chronic kidney disease, or unspecified chronic kidney disease (principal); J96.00 Acute respiratory failure, unspecified whether with hypoxia or hypercapnia; I50.33 Acute on chronic diastolic (congestive) heart failure; E87.2 Acidosis; N17.9 Acute kidney failure, unspecified; J44.1 Chronic obstructive pulmonary disease with (acute) exacerbation; I27.20 Pulmonary hypertension, unspecified; D69.6 Thrombocytopenia, unspecified; I48.0 Paroxysmal atrial fibrillation; I42.9 Cardiomyopathy, unspecified; N18.3 Chronic kidney disease, stage 3 (moderate); I73.9 Peripheral vascular disease, unspecified; D63.1 Anemia in chronic kidney disease; R91.8 Other nonspecific abnormal finding of lung field; R33.9 Retention of urine, unspecified; R59.0 Localized enlarged lymph nodes; N40.0 Benign prostatic hyperplasia without lower urinary tract symptoms; H54.40 Blindness, one eye, unspecified eye; G47.33 Obstructive sleep apnea (adult) (pediatric); I25.10 Atherosclerotic heart disease of native coronary artery without angina pectoris; Z79.02 Long term (current) use of antithrombotics/antiplatelets; Z95.810 Presence of automatic (implantable) cardiac defibrillator
CPT/HCPCS: 36600; 71045; 80048; 80053; 80061; 81001; 81003; 82043; 82150; 82270; 82550; 82553; 82803; 83540; 83605; 83690; 83735; 83880; 84100; 84153; 84154; 84155; 84300; 84484; 85025; 85610; 85730; 87040; 87086; 87400; 94640; 94644; 94660; 94664; 96374; 96375; 97116; 97162; 97530; 99291-25